=== PATIENT | female | born 1985 | race Caucasian/White ===

== ENCOUNTER 2017-01-15 12:33 | Outpatient (CLI) | payer OTHER ==
[~2017-01-15] VITALS: Ht 165.1 cm; Wt 69.6 kg
[2017-01-15 13:03] VITALS: Ht 165.1 cm; Wt 69.6 kg
[2017-01-15 13:04] VITALS: BP 116/76; PULSE 93
--- NOTE | 2017-01-15 14:02 | RADRPT ---
PROCEDURE: US OB. CLINICAL INDICATION: IUGR TECHNIQUE: Multiple sonographic images of the pelvis were obtained. The images were reviewed on a PACS workstation. COMPARISON: No prior studies are available for comparison. FINDINGS: There is a single viable intrauterine gestation. Cardiac activity is present with 148 beats per min chaya. There is a cephalic and presentation. Measurements were made in order to determine age. The results are as follows: BPD =8.72 cm HC =31.81 cm AC =31.60 cm FL =6.69 cm. Estimated gestational age of approximately 35 weeks 2 days. The estimated date of delivery is 02/17/2017. The EFW = 2626 g 20.3% . The placenta is posterior grade II. There is no evidence for an abruption There is a normal amount of amniotic fluid IMPRESSION: Single viable intrauterine gestation of approximately 35 weeks 2 days. The estimated date of delive ry is 02/17/2017 . Note that by LMP, the gestational is approximately 36 weeks 4 days .Ymei Casey MD, MD Date Time Electronically viewed and signed by .Yemi Casey MD, on 01/15/2017 14:01 .W/
--- NOTE | 2017-01-15 14:05 | RADRPT ---
PROCEDURE: US OB. CLINICAL INDICATION: IUGR TECHNIQUE: Multiple sonographic images of the pelvis were obtained. The images were reviewed on a PACS workstation. COMPARISON: No prior studies are available for comparison. FINDINGS: There is a single live intrauterine . cardiac activity is identified at a rate of 1 40 beats per minute. presentation is cephalic. Placenta is posterior grade II. Biophysical profile score is as follows: Breathing 2 Movements 2 Tone 2 Fluid volume 2 Amniotic fluid index = 15.2 cm Total biophysical profile score = 8/8 IMPRESSION: Biophysical profile score = 8/8 RPTAT: HH .Yemi Casey MD, MD Date Time Electronically viewed and signed by .Yemi Casey MD, on 01/15/2017 14:05 .W/
--- NOTE | 2017-01-15 15:04 | PN ---
Triage Information Date/Time Reason for visit: IUGR Weeks of Gestation 36+ /Para 3/1 Diabetes: none Hypertention: none Objective Vital Signs Date Time Temp Pulse Resp B/P Pulse Ox O2 Delivery O2 Flow Rate FiO2 01/15/17 13:04 97.6 93 116/76 Heart Rate: 140's Contractions: None Disposition: Discharge Assessment/Plan 20% BPP 8/8 [facility]charged with [facility] 2 days for NST BPP BRADLEY FAUSTIN M.D. Jan 15, 2017 15:04
--- NOTE | 2017-01-15 15:37 | TRIAGE ---
OB Triage Datetime Report Generated by CPN: 01/15/2017 15:36 Datetime: 01/15/2017 14:51 Labor Evaluation Frequency: 0 Monitor Mode: External Resting Tone [place]: Relaxed Heart Rate FHR Baseline Rate: 145 Monitor Mode: External US Variability: Moderate 6-25 bpm Accelerations: 10X10 Decelerations: None Category: Category I Pain Assessment Pain Scale: 0 Pain Presence: None/Denies Pain Type: N/A Pain Goal: 3 Pain Relief Measures: Comfort Measures Datetime: 01/15/2017 14:49 Stage of : OB Triage Datetime: 01/15/2017 14:20 Stage of : OB Triage Datetime: 01/15/2017 13:53 Labor Evaluation Frequency: 0 Monitor Mode: External Heart Rate FHR Baseline Rate: 135 Monitor Mode: External US FHR Baseline Changes: No Baseline Change Variability: Moderate 6-25 bpm Accelerations: 15X15 Decelerations: None Category: Category I Pain Presence: None/Denies Datetime: 01/15/2017 12:53 Stage of : OB Triage Assessment Type: Triage Maternal Assessment Level of Consciousness: Fully Conscious DTR's/Clonus: DTRs 2+; No Clonus Headache: Denies Blurred Vision: No Respiratory Effort: Unlabored; Regular Rhythm; Equal Expansion Breath Sounds, Left: Clear and Equal Breath Sounds, Right: Clear and Equal Nausea/Vomiting: Denies RUQ Epigastric Pain: Denies Facial Edema: None Temperature Route: Axillary Fall Risk Assessment History of Falling: (0) No Secondary Diagnosis: (0) No Ambulatory Aid: (0) Bedrest/Nurse Assist IV Therapy: (0) No Gait: (0) Normal/Bedrest/Immobile Mental Status: (0) Oriented to Own Ability Fall Score: 0 Fall Risk Score Definition: No Risk: No action required Labor Evaluation Frequency: 0 Monitor Mode: External Pattern: Normal: <= 5 Contractions in 10 Minutes Resting Tone [place]: Relaxed Heart Rate FHR Baseline Rate: 145 Monitor Mode: External US Variability: Moderate 6-25 bpm Accelerations: 10X10 Decelerations: None Category: Category I Pain Assessment Pain Scale: 0 Pain Presence: None/Denies Pain Type: N/A Pain Goal: 3 Pain Relief Measures: Comfort Measures Datetime: 01/15/2017 12:52 Time of Arrival: 01/15/2017 12:45 (Annotations: Data stored by N on behalf of user) EGA: 36.4 Arrived By: Ambulatory Arrived From: Office Chief Complaint: SENT IN FROM DR OFFICE TO R/O IUGR. DENIES LEAKING, BLEEDING OR UC'S Movement: Present Contractions: Denies/Absent Rupture of Membranes: Denies Vaginal Bleeding: None Vaginal Discharge: Denies Recent Sexual Intercouse: Denies Abdominal Trauma: Not Applicable Patient Complaints: None Time Provider Notified: 01/15/2017 14:20 Provider Notified: KEMAL Initial Plan: MONITOR, BPP, EFW
== END 2017-01-15 15:15 | disposition home or self-care (01) ==
LOC: OBT 12:33 → OBG 12:35 → OBT 15:15
PROVIDERS: ATTEND Obstetrics & Gynecology
DX: O36.5930 Maternal care for other known or suspected poor fetal growth, third trimester, not applicable or unspecified (principal); Z3A.36 36 weeks gestation of pregnancy
CPT/HCPCS: 76815; 76818; Z7500; G0463

== ENCOUNTER 2017-01-17 15:41 | Outpatient (CLI) | payer OTHER ==
[~2017-01-17] VITALS: Ht 165.1 cm; Wt 71.2 kg
[2017-01-17 16:05] VITALS: BP 124/76; PULSE 98; RESP 18
--- NOTE | 2017-01-17 16:45 | RADRPT ---
PROCEDURE: US biophysical profile. CLINICAL INDICATION: Decreased motion. TECHNIQUE: Multiple sonographic images of the uterus were obtained. The images were revi ewed on a PACS workstation. COMPARISON: 01/15/2017. FINDINGS: There is a single live intrauterine gestation. heart rate is 143 beats per minute. The position is cephalic. The placenta is fundal grade II with no abruption or previa. The DAMIR is 12.0 cm. (Normal = 5-20 cm.) Breathing Movement: 2 Gross Body Movement: 2 Tone: 2 Qualitative Amniotic Fluid Volume: 2 TOTAL: 8 IMPRESSION: 1. The biophysical score is 8/8. RPTAT: QQ .Mahesh Nunez MD, MD Date Time Electronically viewed and signed by .Mahesh Nunez MD, on 01/17/2017 16:45 .R/
[2017-01-17] MEDS ORDERED: PNV11TAB PO (17:41)
--- NOTE | 2017-01-17 18:02 | CONS ---
Date/Time of Note Date/Time of Note DATE: 01/17/17 TIME: 17:55 Consultation Date/Type/Reason Admit Date/Time January 17, 2017 OB triage consult This patient is a 31 years old 3 para 1 1 living 1 with estimated date of confinement of February 08, 2017 which makes her 36 weeks and 6 days today. During late this question of possible intrauterine growth retardation was raised and she was sent as follow-up for evaluation and monitoring. On examination her general vital signs appears to be normal with blood pressure of 124/76 pulse rate of 91, respiration 98, temperature 98.3, oxygen saturation of 96% on the room temperature. heart tone was around 145 bpm and she has occasional contraction did not seem to be very effective for strong ones. Constitutional: chills, diaphoresis, disoriented, febrile, improved, no complaints, other, poor po, requiring IVF, requiring O2 Eyes: discharge, no complaints, other, pain, redness, visual change ENT: bleeding, congestion, discharge, dysphagia, no complaints, other, pain, sore throat Respiratory: cough, no complaints, other, pain, pleuritic pain, shortness of breath, sputum, wheezing Cardiovascular: chest pain, edema, lightheadedness, no complaints, orthopenea, other, palpitations, paroxysmal nocturnal dyspnea Gastrointestinal: blood, constipation, decreased appetite, diarrhea, flatus, nausea, no complaints, other, pain, passing stool, vomiting Genitourinary: bleeding, discharge, dysuria, flank pain, hematuria, no complaints, other Musculoskeletal: No back pain, No bone/joint pain, No neck pain, No no complaints, No other, No restricted range of motion, No swelling Skin: No bruising, No erythema, No laceration, No no complaints, No other, No pruritis, No rash, No skin lesions Neurologic: No confusion, No dizziness, No focal-weakness, No headache, No no complaints, No other, No seizure, No syncope Endocrine: No dry skin, No no complaints, No other, No polydypsia, No polyuria , No temp intolerance Additional Comments On ultrasound study was performed the result was a single live intrauterine gestation with heartbeat of 143/min in vertex presentation placenta was fundal grade 2 no evidence of abruption her amniotic fluid index was 12 cm and biophysical profile was reported 09/25 With these normal finding patient was discharged home. Advised to stop or reduce the number of the cigarette smoking in view of possible IUGR. 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 Mentioned. Social History Smoking Status: Current some day smoker Exam/Review of Systems Vital Signs Vitals Vital Signs Date Time Temp Pulse Resp B/P Pulse Ox O2 Delivery O2 Flow Rate FiO2 01/17/17 16:05 98.3 98 18 124/76 99 Room Air STEFANIE DICKINSON MD Jan 17, 2017 18:02
--- NOTE | 2017-01-17 19:52 | TRIAGE ---
OB Triage Datetime Report Generated by CPN: 01/17/2017 19:51 Datetime: 01/17/2017 17:54 Maternal Assessment Level of Consciousness: Fully Conscious Headache: Denies Blurred Vision: No Nausea/Vomiting: Denies RUQ Epigastric Pain: Denies Facial Edema: None Labor Evaluation Frequency: 0 Monitor Mode: External Pattern: Normal: <= 5 Contractions in 10 Minutes Resting Tone [place]: Relaxed Heart Rate FHR Baseline Rate: 135 Monitor Mode: External US FHR Baseline Changes: No Baseline Change Variability: Moderate 6-25 bpm Accelerations: 15X15 Decelerations: None Pain Assessment Pain Scale: 0 Pain Presence: None/Denies Pain Type: N/A Datetime: 01/17/2017 17:21 Labor Evaluation Frequency: X3 Monitor Mode: External Duration (sec)2399: 40-60 Quality: Mild Pattern: Normal: <= 5 Contractions in 10 Minutes Resting Tone [place]: Relaxed Heart Rate FHR Baseline Rate: 145 Monitor Mode: External US FHR Baseline Changes: No Baseline Change Variability: Moderate 6-25 bpm Accelerations: 15X15 Decelerations: None Datetime: 01/17/2017 15:56 Stage of : OB Triage Assessment Type: Triage Maternal Assessment Level of Consciousness: Fully Conscious Headache: Denies Blurred Vision: No Respiratory Effort: Unlabored; Regular Rhythm; Equal Expansion Breath Sounds, Left: Clear and Equal Breath Sounds, Right: Clear and Equal Nausea/Vomiting: Denies RUQ Epigastric Pain: Denies Lower Extremities Edema: None Degree: None Upper Extremities Edema: None Degree: None Facial Edema: None Temperature Route: Oral Fall Risk Assessment History of Falling: (0) No Secondary Diagnosis: (0) No Ambulatory Aid: (0) Bedrest/Nurse Assist IV Therapy: (0) No Gait: (0) Normal/Bedrest/Immobile Mental Status: (0) Oriented to Own Ability Fall Score: 0 Fall Risk Score Definition: No Risk: No action required Pain Assessment Pain Scale: 3 Pain Presence: Intermittent Pain Type: Cramping Pain Location: Back Pain Relief Measures: Comfort Measures Datetime: 01/17/2017 15:36 Time of Arrival: 01/16/2017 15:36 EGA: 36.5 Arrived By: Ambulatory Arrived From: Home Chief Complaint: REPEAT NST/BPP Movement: Present Contractions: Denies/Absent Rupture of Membranes: Denies Vaginal Bleeding: None Vaginal Discharge: Denies Patient Complaints: None Additional Patient Complaints: OCCASIONAL BACK CRAMPS Time Provider Notified: 01/17/2017 17:31 Provider Notified: DR. DICKINSON Initial Plan: EFM x2, BPP Datetime: 01/15/2017 12:53 Fall Score: 0 Fall Risk Score Definition: No Risk: No action required Datetime: 01/15/2017 12:52 EGA: 36.4
== END 2017-01-17 18:10 | disposition home or self-care (01) ==
LOC: OBT 15:41 → L-D 15:42 → OBT 18:10
PROVIDERS: ATTEND Obstetrics & Gynecology
DX: O26.893 Other specified pregnancy related conditions, third trimester (principal); Z3A.36 36 weeks gestation of pregnancy; R10.13 Epigastric pain; R42 Dizziness and giddiness
CPT/HCPCS: 76818; Z7500; G0463

== ENCOUNTER 2017-02-01 09:07 | Inpatient (IN) | payer OTHER ==
[~2017-02-01] VITALS: Ht 165.1 cm; Wt 72.5 kg
[~2017-02-01 09:07] MED LIST: PNV11TAB PO
[2017-02-01] MEDS ORDERED: CEFAZOLIN 2 GM/50 ML (PMX) 50 ML IV SCH (09:30)
[2017-02-01] MEDS ORDERED: MISOPROSTOL 200 MCG TAB PR PRN ×2 (09:30→19:00)
[2017-02-01] MEDS ORDERED: OXYTOCIN 30 UNITS/LR 500 ML IV SCH (09:30)
[2017-02-01] MEDS ORDERED: METHYLERGONOVINE 0.2 MG INJ IM PRN ×2 (09:30→19:00)
[2017-02-01] MEDS ORDERED: CARBOPROST 250 MCG INJ IM PRN ×2 (09:30→19:00)
[2017-02-01] MEDS ORDERED: OXYTOCIN 30 UNITS/LR 500 ML IV PRN ×2 (09:30→19:00)
[2017-02-01 09:37] VITALS: BP 118/79; PULSE 100; RESP 20
[2017-02-01] MEDS ORDERED: LACTATED RINGER'S 1,000 ML IV ONE (10:00)
[2017-02-01] MEDS ORDERED: LACTATED RINGER'S 1,000 ML IV SCH (10:00)
[2017-02-01 10:01] VITALS: Ht 165.1 cm; Wt 72.5 kg
[2017-02-01 11:02] LABS: BASOPHIL # 0.1 10^3/ul (0.0-0.1); BASOPHILS % 0.2 % (0.0-2.0); EOSINOPHILS # 0.2 10^3/ul (0.0-0.5); EOSINOPHILS % 0.8 % (0.0-7.0); HEMATOCRIT 37.1 % (37.0-47.0); HEMOGLOBIN 12.8 g/dl (12.0-16.0); LYMPHOCYTES # 1.8 10^3/ul (0.8-2.9); LYMPHOCYTES % 8.6 % (15.0-51.0); MEAN CORPUSCULAR HEMOGLOBIN 29.7 pg (29.0-33.0); MEAN CORPUSCULAR HGB CONC 34.5 g/dl (32.0-37.0); MEAN CORPUSCULAR VOLUME 86.1 fl (82.0-101.0); MEAN PLATELET VOLUME 10.5 fl (7.4-10.4); MONOCYTE # 1.2 10^3/ul (0.3-0.9); MONOCYTES % 5.7 % (0.0-11.0); NEUTROPHIL # 17.2 10^3/ul (1.6-7.5); NEUTROPHILS % 81.4 % (39.0-77.0); PLATELET COUNT 266 10^3/UL (140-415); RED BLOOD COUNT 4.31 10^6/ul (4.20-5.40); RED CELL DISTRIBUTION WIDTH 13.6 % (11.5-14.5); WHITE BLOOD COUNT 21.2 10^3/ul (4.8-10.8)
[2017-02-01 11:23] LABS: INR 0.93; PROTIME 12.6 Sec (11.9-14.9)
[2017-02-01 11:25] LABS: PARTIAL THROMBOPLASTIN TIME 26.5 Sec (25.0-35.0)
[2017-02-01 11:34] LABS: BARBITURATES Negative (NEGATIVE); BENZODIAZEPINES Negative (NEGATIVE); CANNABINOIDS Negative (NEGATIVE); COCAINE Negative (NEGATIVE); OPIATES Negative (NEGATIVE)
--- NOTE | 2017-02-01 12:46 | HP ---
Date/Time of Note Date/Time of Note DATE: 02/01/17 TIME: 12:40 OB - History Hx of Present Free Text/Dictation 31 years old female [id number], EDC February 08, 2017 admitted to [facility] at 39 weeks gestation for repeat . Chief Complaint: 39 weeks history of previous Estimated Due Date: Feb 08, 2017 : 3 Para: 1 Spontaneous : 1 Therapeutic : 0 Ultrasounds: Normal mid trimester US Medical Complications: None Past Family/Social History * Past Medical, Surgical, Family and Obstetric Histories reviewed from chart. Rubella: immune RPR/VDRL: Negative GBS Status: Negative HBsAG: Negative OB Admission Exam Vital Signs Vital Signs Vital Signs Date Time Temp Pulse Resp B/P Pulse Ox O2 Delivery O2 Flow Rate FiO2 02/01/17 09:37 98.3 100 20 118/79 Room Air Physical Exam HEENT: WNL Heart: Rhythm Normal Lungs: Clear, Equal Abdomen: WNL Extremities: Normal Reflexes: Normal Cervical Dilatation: None Station: -2 Membranes: Intact Heart Rate: 130's Decelerations: No Decelerations Varibility: Moderate Last 72 hours Lab Results CBC & BMP 02/01/17 10:10 OB Assessment/Plan Reason for admission: other (39 weeks history of previous ) Other plan: 31 years old female history of previous admitted at 39 weeks gestation to undergo repeat complication of the surgery including but not limited to bowel and bladder injury infection hemorrhage and hematoma has been discussed with her and she would like to proceed with the operation, SAMEER SOMMER MD Feb 01, 2017 12:46
[2017-02-01] MEDS ORDERED: METOCLOPRAMIDE 10 MG INJ ONE (12:58)
[2017-02-01] MEDS ORDERED: OXYTOCIN 10 UNIT INJ ONE (12:58)
[2017-02-01] MEDS ORDERED: morphine SULFATE/PF (10 MG/10 ML) INJ ONE (12:58)
[2017-02-01] MEDS ORDERED: OXYTOCIN 30 UNITS/LR 500 ML IV ONE (12:58)
[2017-02-01] MEDS ORDERED: ONDANSETRON 4 MG INJ ONE (12:58)
[2017-02-01] MEDS ORDERED: EPHEDrine SULFATE 50 MG/5 ML SYG ONE (12:58)
[2017-02-01] MEDS ORDERED: MIDAZOLAM 1 MG/ML 2 ML INJ ONE (13:20)
--- NOTE | 2017-02-01 13:54 | OPR ---
Operative Report Planned Procedure Free Text/Dictation 31 years old female SAB 1 EDC February 08, 2017 admitted at 39 weeks gestation with a history of previous . Patient has been counseled regarding complication of the surgery including but not limited to bowel and bladder injury infection wound hematoma wound infection and she is willing to go ahead with this procedure Procedure date Feb 01, 2017 Procedure(s) Repeat section Performed by see signature line Vp Research DR charles chavez Anesthesiologist: WILLI SANTILLAN MD Pre-procedure diagnosis 39 weeks history of previous Anesthesia Type: spinal Post-Procedure Post-procedure diagnosis 39 weeks with previous section Findings Live Baby boy 9 and 9 Estimated Blood Loss: 500 - 600 mls Specimen(s) none Grafts/Implant(s) none Complication(s) none Pt Condition post procedure: stable Procedure Description Under satisfactory spinal anesthesia patient prepped and draped and placed in supine position. Pfannenstiel incision was made old scar was removed. Incision carried through the subcutaneous tissue bleeders brought under control with electrocautery. Fascia incised to the length of incision. Rectus muscle divided in midline. Peritoneum exposed and entered to a vertical incision. Exploration of abdomen revealed [gravid uterus at term normal-appearing tubes and ovaries.] Bladder flap was developed. Transverse incision was made in the extremely thinned out lower segment of the uterus. Amniotic sac ruptured, [clear amniotic fluid noted.] Live baby boy was delivered from unengaged vertex.Naso oropharyngeal suction was performed. Baby handed to the team for immediate attention. Patient received 20 units of Pitocin. Placenta delivered manually intact. Uterine cavity cleaned with a wet sponge and drainage established. Uterus closed in 2 layers using Monocryl #1 in continuous fashion. Peritoneal cavity irrigated with warm saline. Sponge needle instrument reported to be correct. Abdominal peritoneum closed with 2-0 chromic catgut continuously. Fascia closed with #1 PDS in a continuous fashion. Subcutaneous tissue irrigated with warm saline and approximated with 2-0 chromic catgut skin closed with N sorb estimated blood loss [600 cc]. Urine bag containing [200] mL of [clear] urine. Patient tolerated procedure well and transferred to recovery room in good condition. SAMEER SOMMER MD Feb 01, 2017 13:54
[2017-02-01] MEDS ORDERED: NALOXONE (0.4 MG/ML) INJ IV PRN (14:30)
[2017-02-01] MEDS ORDERED: morphine SULFATE/PF (10 MG/10 ML) INJ SPINAL ONE (14:30)
[2017-02-01] MEDS ORDERED: morphine 4 MG/ML VIAL IV PRN (14:30)
[2017-02-01] MEDS ORDERED: ONDANSETRON 4 MG INJ IV PRN (14:30)
[2017-02-01] MEDS ORDERED: EPHEDrine SULFATE 50 MG/5 ML SYG IV PRN (14:30)
[2017-02-01] MEDS ORDERED: morphine 2 MG INJ IV PRN (14:30)
[2017-02-01] MEDS: DIPHENHYDRAMINE 50 MG INJ IV PRN ×3 (15:05→15:08)
[2017-02-01] MEDS: KETOROLAC 30 MG INJ IV PRN (15:50)
[2017-02-01 18:51] VITALS: BP 122/72; PULSE 79; RESP 16
[2017-02-01] MEDS ORDERED: LANOLIN 7 GM TUBE TOP PRN (19:00)
[2017-02-01] MEDS ORDERED: OXYCODONE/ACETAMINOPHEN (5/325) TAB PO PRN ×2 (19:00)
[2017-02-01] MEDS ORDERED: HYDROCODONE/APAP (5/325) TAB PO PRN ×2 (19:00)
[2017-02-01] MEDS ORDERED: CEFAZOLIN 1 GM/50 ML (PMX) 50 ML IVPB SCH ×2 (19:00→22:00)
[2017-02-01] MEDS: OXYTOCIN 30 UNITS/LR 500 ML IV SCH (19:28)
[2017-02-01 20:25] VITALS: BP 119/61; PULSE 98; RESP 19
[2017-02-01] MEDS: SENNA/DOCUSATE NA (8.6MG/50MG) TAB PO SCH (21:47)
[2017-02-02 00:20] VITALS: BP 112/64; PULSE 92; RESP 17
[2017-02-02] MEDS: KETOROLAC 30 MG INJ IV PRN ×2 (01:08→12:06)
[2017-02-02] MEDS: OXYTOCIN 30 UNITS/LR 500 ML IV SCH ×5 (02:40→14:40)
[2017-02-02 03:50] VITALS: BP 106/55; PULSE 89; RESP 17
[2017-02-02 08:00] VITALS: BP 109/59; PULSE 87; RESP 18
[2017-02-02] MEDS ORDERED: INFLUENZA VIRUS VACCINE 0.5 ML SYG IM* ONE (09:00)
[2017-02-02] MEDS: SENNA/DOCUSATE NA (8.6MG/50MG) TAB PO SCH ×2 (09:25→22:22)
[2017-02-02 10:53] LABS: BASOPHILS % 0.2 % (0.0-2.0); EOSINOPHILS # 0.1 10^3/ul (0.0-0.5); HEMATOCRIT 32.3 % (37.0-47.0); HEMOGLOBIN 11.1 g/dl (12.0-16.0); LYMPHOCYTES # 1.5 10^3/ul (0.8-2.9); LYMPHOCYTES % 10.8 % (15.0-51.0); MEAN CORPUSCULAR HGB CONC 34.4 g/dl (32.0-37.0); MEAN CORPUSCULAR VOLUME 87.3 fl (82.0-101.0); MEAN PLATELET VOLUME 10.2 fl (7.4-10.4); MONOCYTES % 7.6 % (0.0-11.0); NEUTROPHIL # 10.6 10^3/ul (1.6-7.5); NEUTROPHILS % 78.8 % (39.0-77.0); PLATELET COUNT 212 10^3/UL (140-415); RED CELL DISTRIBUTION WIDTH 13.7 % (11.5-14.5); WHITE BLOOD COUNT 13.5 10^3/ul (4.8-10.8)
[2017-02-02 16:00] VITALS: BP 120/72; PULSE 85; RESP 16
[2017-02-02] MEDS: IBUPROFEN 600 MG TAB PO SCH ×2 (18:26→23:53)
[2017-02-02 20:20] VITALS: BP 121/82; PULSE 95; RESP 18
[2017-02-03 04:15] VITALS: BP 109/74; PULSE 63; RESP 17
[2017-02-03] MEDS: IBUPROFEN 600 MG TAB PO SCH ×2 (05:34→11:50)
[2017-02-03 08:35] VITALS: BP 122/79; PULSE 85; RESP 19
[2017-02-03] MEDS: SENNA/DOCUSATE NA (8.6MG/50MG) TAB PO SCH (08:47)
--- NOTE | 2017-02-03 12:11 | PD.PPDC ---
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
--- NOTE | 2017-02-03 12:15 | DS ---
Date/Time of Note Date/Time of Note DATE: 02/03/17 TIME: 12:13 Discharge Summary Admission/Discharge Info Admit Date/Time Feb 01, 2017 at 09:07 Discharge Date/Time February 03, 2017 at 12:10 PM Discharge Diagnosis Post repeat day 2 Patient Condition: Good Procedures Repeat Hx of Present Illness 39 weeks history of previous Hospital Course Satisfactory recovery uneventful Home Meds Reported Medications [id number] ( 19) 1 Each Tablet, 1 TAB PO DAILY, TAB 01/17/17 Follow-up Plan Post instruction given recommended to make appointment to be seen at the office in 1 week Primary Care Provider Not On Staff Doctor Time spent on discharge: < 30 minutes SAMEER SOMMER MD Feb 03, 2017 12:15
[2017-02-03] MEDS ORDERED: INFLUENZA VIRUS VACCINE 0.5 ML SYG IM* ONE (17:00)
[2017-02-03] MEDS ORDERED: SENNA/DOCUSATE NA (8.6MG/50MG) TAB PO SCH (21:00)
[2017-02-04] MEDS ORDERED: DIPHTH/TET/ACEL PERTUSS (ADULT) 0.5 ML VIAL IM* ONE (09:00)
== END 2017-02-03 14:55 | disposition home or self-care (01) | DRG 766 ==
LOC: L-D 09:07 → PP1 17:27
PROVIDERS: ADMIT Obstetrics & Gynecology; ATTEND Obstetrics & Gynecology
PROC: 10D00Z1 Extraction of Products of Conception, Low, Open Approach (ICD-10-PCS; principal; 2017-02-01 12:30)
DX: O34.211 Maternal care for low transverse scar from previous cesarean delivery (principal); Z37.0 Single live birth; Z3A.39 39 weeks gestation of pregnancy
CPT/HCPCS: 80307; 85025; 85610; 85730; 86592; 86850; 86900; 86901; 87340; 90686; 90715; 94760; 99464; J0690; J1200; J1885; J2250; J2274; J2405; J2590; J2765; J7120